=== PATIENT | male | born 1965 | race Caucasian/White ===

== ENCOUNTER 2016-08-16 12:16 | Emergency (ER) | payer BC ==
[2016-08-16 13:07] VITALS: BP 131/85
--- NOTE | 2016-08-16 14:05 | UC ---
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-Has tried sudafed and Ibuprofen with out relief - History of Current Complaint Hx Obtained From: Patient Onset/Duration: Gradual Onset, Lasting Weeks - 2, Still Present, Worse Since - 5 days Severity Initially: Mild Severity Currently: Moderate Pain Intensity: 6 Pain Scale Used: 0-10 Numeric Alleviating Factors: Nothing Related History: Smoking <Lianna Hernandez - Last Filed: 08/16/16 14:36> <Kristal Silva - Last Filed: 08/17/16 19:37> - History of Current Complaint Chief Complaint: UCGeneralIllness Stated Complaint: EAR PAIN,SINUS Time Seen by Provider: 08/16/16 13:56 - Allergies/Home Medications Allergies/Adverse Reactions: Allergies Allergy/AdvReac Type Severity Reaction Status Date / Time Azithromycin Allergy Hives Verified 08/16/16 13:07 Penicillins Allergy Hives Verified 08/16/16 13:07 Home Medications: Home Medications Pantoprazole TAB (NF) [Protonix TAB (NF)] 1 tab PO DAILY 08/16/16 [History Confirmed 08/16/16] Pseudoephedrine TAB* [Sudafed TAB*] 1 tab PO Q4H PRN 08/16/16 [History Confirmed 08/16/16] PMH/Surg Hx/FS Hx/Imm Hx Previously Healthy: Yes GI/ History Of: Reports: Gastroesophageal Reflux - Surgical History Surgical History: Yes Surgery Procedure, Year, and Place: Appendectomy - Family History Known Family History: Positive: None Family History: no cardio vascular issues in family lineage - Social History Occupation: Employed Full-time Lives: With Family Alcohol Use: Occasionally Substance Use Type: None Smoking Status (MU): Heavy Every Day Tobacco Smoker Amount Used/How Often: 1/2ppd Have You Smoked in the Last Year: Yes Household Exposure Type: Cigarettes Cessation Counseling: Patient Advised to Stop <Lianna Hernandez - Last Filed: 08/16/16 14:36> Review of Systems Constitutional: Negative Skin: Negative Eyes: Negative ENT: Negative, Dental Pain - right side, Ear Ache Respiratory: Negative Cardiovascular: Negative Gastrointestinal: Negative Genitourinary: Negative Motor: Negative Neurovascular: Negative Musculoskeletal: Negative Neurological: Headache - facial pain Psychological: Negative All Other Systems Reviewed And Are Negative: Yes <Lianna Hernandez - Last Filed: 08/16/16 14:36> Physical Exam Triage Information Reviewed: Yes Appearance: Well-Appearing, No Pain Distress, Well-Nourished Vital Signs: Initial Vital Signs Temp 98.2 F 08/16/16 13:01 Pulse 73 08/16/16 13:01 Resp 16 08/16/16 13:01 BP 131/85 08/16/16 13:01 Pulse Ox 99 08/16/16 13:01 Vital Signs Reviewed: Yes Eye Exam: Normal Eyes: Positive: Conjunctiva Clear ENT Exam: Normal ENT: Positive: Normal ENT inspection, Hearing grossly normal, Pharynx normal, TMs normal. Negative: Nasal congestion, Nasal drainage, Tonsillar swelling, Tonsillar exudate, Trismus, Muffled/hoarse voice Dental Exam: Normal Neck exam: Normal Neck: Positive: Supple, Nontender, No Lymphadenopathy Respiratory Exam: Normal Cardiovascular Exam: Normal Cardiovascular: Positive: RRR, No Murmur, Pulses Normal, Brisk Capillary Refill Musculoskeletal Exam: Normal Musculoskeletal: Positive: Strength Intact, ROM Intact, No Edema Neurological Exam: Normal Neurological: Positive: Alert, Muscle Tone Normal Psychological Exam: Normal Skin Exam: Normal <Lianna Hernandez - Last Filed: 08/16/16 14:36> Vital Signs: Initial Vital Signs Temp 98.2 F 08/16/16 13:01 Pulse 73 08/16/16 13:01 Resp 16 08/16/16 13:01 BP 131/85 08/16/16 13:01 Pulse Ox 99 08/16/16 13:01 <Kristal Silva - Last Filed: 08/17/16 19:37> Ear Complaint Course/Dx - Course Course Of Treatment: flonase, sudafed, increase fluids, if no resolve may add Doxy. BID for 10 days, follow with pcp re-check if not improving or worsens in any way - Differential Dx/Diagnosis Differential Diagnosis/HQI/PQRI: Otitis Externa, Otitis Media, URI Provider Diagnoses: Serrous otits, rhinnosinusitis <Lianna Hernandez - Last Filed: 08/16/16 14:36> Discharge <Lianna Hernandez - Last Filed: 08/16/16 14:36> <Kristal Silva - Last Filed: 08/17/16 19:37> - Discharge Plan Condition: Stable Disposition: HOME Prescriptions: DOXYcycline CAP(*) [DOXYcycline 100MG CAP(*)] 100 mg PO BID #20 cap Fluticasone NASAL SPRAY 50MCG* [Flonase NASAL SPRAY 50MCG*] 2 spray BOTH NARES DAILY #1 btl Patient Education Materials: Decongestant/Expectorant (By mouth), Fluticasone ( Into the nose), How to Stop Smoking (ED), Sinusitis (ED), Secondhand Smoke Exposure in Children (ED) Referrals: Christos Barragan MD [Primary Care Provider] - 1 Week Attestation Statement User Type: Provider - I was available for consult. This patient was seen by the advanced practice provider. The patient was not presented to, seen by, or examined by me.-Alo <Kristal Silva - Last Filed: 08/17/16 19:37>
== END 2016-08-16 14:13 | disposition home or self-care (01) ==
LOC: UCCORT 12:16
DX: Z88.1 Allergy status to other antibiotic agents (principal); K21.9 Gastro-esophageal reflux disease without esophagitis; Z88.0 Allergy status to penicillin; F17.210 Nicotine dependence, cigarettes, uncomplicated
CPT/HCPCS: 99202; G0463

== ENCOUNTER 2017-06-07 07:59 | Emergency (ER) | payer BC ==
--- NOTE | 2017-06-07 08:22 | UC ---
FLU HPI - HPI Summary HPI Summary: 51 y/o male presents to the urgent care c/o fever, chills and body aches since last week. However yesterday he us feeling worse w/ sinus congestion, nasal discharge is green, w/ +PND and dry cough. He was given the Tamiflu at work which he already finished. He requests the influenza test to make sure he doesn 't have it . He also request a refill of Protonix 20mg PO. Pain is 1/0. Pt denies SOB, chest pain, abdominal pain, N/V/D. His PCP is DR lane. - History of Current Complaint Stated Complaint: FLU LIKE SYMPTOMS Time Seen by Provider: 06/07/17 08:18 Hx Obtained From: Patient Onset/Duration: Gradual Onset, Lasting Days, Lasting Weeks - 1 week, Worse Since - yesterday Severity Currently: Moderate Severity Initially: Mild Pain Intensity: 1 Pain Scale Used: 0-10 Numeric Associated Signs & Symptoms: Positive: Fever - low grade, Myalgia, Cough, Nasal Congestion, Headache - Risk Factors Influenza Risk Factors: Negative - Allergy/Home Medications Allergies/Adverse Reactions: Allergies Allergy/AdvReac Type Severity Reaction Status Date / Time azithromycin Allergy Hives Verified 06/07/17 08:21 Penicillins Allergy Hives Verified 06/07/17 08:21 PMH/Surg Hx/FS Hx/Imm Hx Previously Healthy: Yes GI/ History: Gastroesophageal Reflux - Surgical History Surgical History: Yes Surgery Procedure, Year, and Place: Appendectomy - Family History Known Family History: Positive: Diabetes Family History: no cardio vascular issues in family lineage - Social History Occupation: Employed Full-time Lives: With Family Alcohol Use: Occasionally Substance Use Type: None Smoking Status (MU): Heavy Every Day Tobacco Smoker Amount Used/How Often: 1/2ppd Have You Smoked in the Last Year: Yes Household Exposure Type: Cigarettes Review of Systems Constitutional: Fever, Chills, Fatigue, Other - body aches Skin: Negative Eyes: Negative ENT: Sore Throat, Nasal Discharge, Sinus Congestion, Sinus Pain/Tenderness Respiratory: Cough Cardiovascular: Negative Gastrointestinal: Negative Genitourinary: Negative Motor: Negative Neurovascular: Negative Musculoskeletal: Negative Neurological: Headache Psychological: Negative Is Patient Immunocompromised?: No All Other Systems Reviewed And Are Negative: Yes Physical Exam Triage Information Reviewed: Yes - Additional Comments VITAL SIGNS: Reviewed. GENERAL: Patient is a well developed and nourished male who is sitting comfortable in the examining table. Patient is not in any acute respiratory distress. HEAD AND FACE: No signs of trauma. No ecchymosis, hematomas or skull depressions. No sinus tenderness. edematous erythematous nasal mucosa with yellowish discharge, EYES: PERRLA, EOMI x 2, No injected conjunctiva, clear watery eyes, no nystagmus. No photophobia. EARS: Hearing grossly intact. Ear canals and tympanic membranes are within normal limits. MOUTH: Positive pharynx with erythema, no exudates,no palatal petechiae. no B/L tonsillar enlargement Uvula in midline. NECK: Supple, trachea is midline, Positive anterior cervical lymphadenopathy, no JVD, no carotid bruit, no c-spine tenderness, neck with full ROM. No meningeal signs, no Kernig's or brudzinskis signs. CHEST: Symmetric, no tenderness at palpation LUNGS: Clear to auscultation bilaterally. No wheezing or crackles. CVS: Regular rate and rhythm, S1 and S2 present, no murmurs or gallops appreciated. ABDOMEN: Soft, non-tender. No signs of distention. No rebound no guarding, and no masses palpated. Bowel sounds are normal. EXTREMITIES: FROM in all major joints, no edema, no cyanosis or clubbing. NEURO: Alert and oriented x 3. No acute neurological deficits. Speech is normal and follows commands. SKIN: Dry and warm Flu Course/Dx - Course Course Of Treatment: 51 y/o male presents to the urgent care c/o fever, chills and body aches since last week. However yesterday he us feeling worse w/ sinus congestion, nasal discharge is green, w/ +PND and dry cough. He was given the Tamiflu at work which he already finished. He requests the influenza test to make sure he doesn't have it . He also request a refill of Protonix 20mg PO. Pain is 1/0. Pt denies SOB, chest pain, abdominal pain, N/V/D. His PCP is DR lane. Hx obtained. Pt with sinusitis on examination. Influenza A&B test ordered: negative. Pt with 1 weeks of symptoms getting worse. Pt PCP and Azitromycing allergic. Pt Rx Doxycycline PO and flonase nasal spray. Discharge instructions explained to Pt. Advised to Return to the clinic or PCP if symptoms do not improve.Pt understood and agreed with plan of care. - Differential Dx/Diagnosis Differential Diagnosis/HQI/PQRI: Bronchitis, Influenza, Upper Respiratory Infection, Other - pharyngitis Provider Diagnoses: 1- Acute bacterial sinusitis Discharge - Discharge Plan Condition: Stable Disposition: HOME Prescriptions: DOXYcycline CAP(*) [DOXYcycline 100MG CAP(*)] 100 mg PO BID #20 cap Pantoprazole TAB (NF) [Protonix TAB (NF)] 20 mg PO DAILY #30 tab Patient Education Materials: Sinusitis (ED) Forms: *Work Release Referrals: Christos Lane MD [Primary Care Provider] - 3 Days Additional Instructions: 1- Please increase fluid intake and rest. take full course of antibiotic to avoid resistance 2-Use Flonase as directed to help drain fluid. Also buy saline drops to clear sinuses 3-Take Sudafed or Claritin PO OTC to alleviates sinus congestion 4-Return to the clinic or PCP if symptoms do not improve for further management and treatment
[2017-06-07 08:27] VITALS: BP 119/78
== END 2017-06-07 09:10 | disposition home or self-care (01) ==
LOC: UCCORT 07:59
DX: J01.90 Acute sinusitis, unspecified (principal); B96.89 Other specified bacterial agents as the cause of diseases classified elsewhere; F17.210 Nicotine dependence, cigarettes, uncomplicated; Z72.89 Other problems related to lifestyle
CPT/HCPCS: 87502; 99212; G0463